=== PATIENT | female | born 1990 | race Caucasian/White ===

== ENCOUNTER → 2016-09-04 | Outpatient (CLI) | payer OTHER ==
[~2016-09-04] MED LIST: ACIPHEX20 MG; ALLEGRA ALLERG180 M2 PO; AMITRIPTYLINE H10 M1 PO; AMOXIL250 MG/5 M PO; AMOXIL500 MG PO; ANAPROX DS550 MG PO; BACTRIM DS 8001 TA1 PO; BACTRIM DS 8001 TAB PO; BENADRYL ALLERG25 M5 PO; BUSPAR10 MG; CEFADROXIL500 M1 PO; CIPRO250 MG PO; CIPROFLOXACIN500 M4 PO; CIPROFLOXACIN500 MG PO; CLEOCIN T T; DIAZEPAM2 MG PO; DICLEGIS DR 101 EACH PO; DICYCLOMINE HCL10 MG PO; DIFLUCAN150 MG PO; DOXEPIN HCL 10 MG/ML PO; FLEXERIL10 MG PO; FLUOXETINE20 MG PO; HYDROCODONE BIT1 T11 PO; HYDROXYZINE PAM50 MG PO; IBU800 MG PO; K-DUR 20MEQ20 MEQ PO; KEFLEX250 MG PO; KEFLEX500 M1 PO; KETOROLAC10 MG PO; KLONOPIN0.5 MG PO; LAMICTAL100 MG PO; LAMICTAL150 MG PO; LOMOTIL 0.025 M1 TAB PO; MACROBID100 M1 PO; MEDROL DOSEPAK4 MG PO; METHOCARBAMOL500 MG PO; MOTRIN CHI100 MG/51 PO; MOTRIN800 MG PO; NALTREXONE50 MG PO; NEXPLANON68 M2 SQ; NITROFURANTOIN100 M6 PO; ONDANSETRON4 MG PO; ORAPRED15 MG/5 ML PO; Orphenadrine C100 MG PO; PREDNISONE20 M1 PO; PRENATAL1 TA3 PO; PRILOSEC40 MG; PRILOSEC40 MG PO; PROZAC40 MG PO; REMERON30 M1 PO; RISPERDAL0.5 MG PO; SENOKOT1 TAB PO; SEROQUEL50 MG PO; SINEMET 25-100M1 TAB PO; SUDAFED60 MG PO; Septra Ds 800 M1 TAB PO; TRINTELLIX10 MG PO; VICODIN 5/500 505 MG; VICODIN 5/500 505 MG PO; VIVITROL380 MG IM; ZANTAC 150150 MG PO; ZITHROMAX Z PA250 MG PO; ZITHROMAX250 MG PO; ZOFRAN ODT4 MG SL; ZOFRAN ODT8 MG PO; ZOFRAN8 MG
== END | disposition home or self-care (01) ==
LOC: CT 08:49
DX: R10.2 Pelvic and perineal pain (principal); R82.99 Other abnormal findings in urine; M54.5 Low back pain; R31.9 Hematuria, unspecified; Z90.49 Acquired absence of other specified parts of digestive tract

== ENCOUNTER 2016-09-26 21:45 | Emergency (ER) | payer OTHER ==
[~2016-09-26] VITALS: Wt 70.3 kg
[2016-09-26] MEDS ORDERED: CLINDAMYCIN HC300 MG PO (21:53)
[2016-09-26 22:30] LABS: BASO % 0.3 % (0.0-1.0); EOS # 0.4 10*3/uL (0.0-0.4); EOS % 5.5 % (1.0-4.0); HEMATOCRIT 40.5 % (37.0-47.0); HEMOGLOBIN 13.4 g/dl (12.0-16.0); LYMPH % 29.9 % (27.0-41.0); MEAN CELL VOLUME 91.8 fl (81.0-99.0); MEAN CORPUSCULAR HGB 30.4 pg (27.0-31.0); MEAN CORPUSCULAR HGB CONC 33.1 g/dl (33.0-37.0); MEAN PLATELET VOLUME 9.6 fl (9.6-12.3); MONO # 0.4 10*3/uL (0.1-1.0); MONO % 5.8 % (3.0-9.0); NEUT # 3.9 10*3/uL (2.3-7.9); NEUT % 58.2 % (47.0-73.0); PLATELET COUNT AUTOMATED 307 10*3/uL (130-400); RED BLOOD COUNT 4.41 10*6/uL (4.10-5.10); RED CELL DISTRI WIDTH 12.6 % (0-14.5); WHITE BLOOD COUNT 6.8 10*3/uL (4.8-10.8)
[2016-09-26 22:44] LABS: BILIRUBIN NEGATIVE (NEGATIVE); BLOOD NEGATIVE (NEGATIVE); CLARITY SL CLOUDY (CLEAR); COLOR YELLOW (YELLOW); GLUCOSE NEGATIVE (NEGATIVE); KETONE NEGATIVE (NEGATIVE); LEUKO ESTERASE NEGATIVE (NEGATIVE); NITRITE NEGATIVE (NEGATIVE); PH 7.5 (5.0-9.0); PROTEIN NEGATIVE (NEGATIVE); UROBILINOGEN 0.2 E.U./dl (0.2-1.0)
[2016-09-26 22:48] LABS: BUN 13 mg/dl (7-24); CARBON DIOXIDE 26 mmol/L (21-32); CHLORIDE 105 mmol/L (98-107); EST GLOM FILT AFRICAN AMERICAN > 60 ml/min; GLUCOSE 90 mg/dL (65-99); POTASSIUM 3.9 mmol/L (3.5-5.1); SODIUM 142 mmol/L (136-145)
[2016-09-26 22:52] LABS: TROPONIN I < 0.015 ng/ml (<0.045)
[2016-09-26 22:55] LABS: BACTERIA 2+; EPITHELIAL CELLS 15-20; RBC 0-2 rbc/hpf (0-2); WBC 0-2 wbc/hpf (0-5)
[2016-09-26 22:56] LABS: URINE REFLEX COMMENT YES (NO)
[2016-09-26] MEDS ORDERED: Zofran4 MG PO (23:44)
[2016-09-27] MEDS ORDERED: BENTYL10 MG PO ×2 (00:01→00:44)
[2016-09-27] MEDS ORDERED: Zofran4 MG PO (00:44)
== END 2016-09-27 00:49 | disposition home or self-care (01) ==
LOC: ED 21:45
PROVIDERS: Emergency Medicine Emergency Medical Services; Student in an Organized Health Care Education/Training Program
DX: R10.84 Generalized abdominal pain (principal); F17.200 Nicotine dependence, unspecified, uncomplicated; R11.0 Nausea; Z90.49 Acquired absence of other specified parts of digestive tract; Z79.899 Other long term (current) drug therapy

== ENCOUNTER 2016-09-27 17:02 | Emergency (ER) | payer OTHER ==
[~2016-09-27] VITALS: Ht 160 cm; Wt 70.3 kg
[~2016-09-27 17:02] MED LIST changes: +BENTYL10 MG PO; +CLINDAMYCIN HC300 MG PO; +Zofran4 MG PO
[2016-09-27 18:01] LABS: BASO % 0.4 % (0.0-1.0); EOS # 0.3 10*3/uL (0.0-0.4); HEMATOCRIT 40.8 % (37.0-47.0); HEMOGLOBIN 13.4 g/dl (12.0-16.0); LYMPH # 1.8 10*3/uL (1.3-4.4); LYMPH % 26.9 % (27.0-41.0); MEAN CELL VOLUME 92.5 fl (81.0-99.0); MEAN CORPUSCULAR HGB 30.4 pg (27.0-31.0); MEAN CORPUSCULAR HGB CONC 32.8 g/dl (33.0-37.0); MONO # 0.4 10*3/uL (0.1-1.0); MONO % 6.1 % (3.0-9.0); NEUT # 4.2 10*3/uL (2.3-7.9); NEUT % 61.3 % (47.0-73.0); PLATELET COUNT AUTOMATED 303 10*3/uL (130-400); RED BLOOD COUNT 4.41 10*6/uL (4.10-5.10); RED CELL DISTRI WIDTH 12.7 % (0-14.5); WHITE BLOOD COUNT 6.9 10*3/uL (4.8-10.8)
[2016-09-27 18:37] LABS: ALBUMIN 3.4 gm/dl (3.1-4.5); ALKALINE PHOSPHATASE 43 U/L (45-117); BILIRUBIN, TOTAL 0.6 mg/dl (0.2-1.0); BUN 17 mg/dl (7-24); CARBON DIOXIDE 20 mmol/L (21-32); CHLORIDE 108 mmol/L (98-107); EST GLOM FILT AFRICAN AMERICAN > 60 ml/min; GLUCOSE 86 mg/dL (65-99); POTASSIUM 4.8 mmol/L (3.5-5.1); SGOT/AST 36 IU/L (3-35); SGPT/ALT 17 U/L (12-78); SODIUM 140 mmol/L (136-145)
== END 2016-09-27 21:00 | disposition home or self-care (01) ==
LOC: ED 17:02
PROVIDERS: Physician Assistant
DX: K59.01 Slow transit constipation (principal); R10.9 Unspecified abdominal pain; R14.0 Abdominal distension (gaseous); R11.0 Nausea; F17.200 Nicotine dependence, unspecified, uncomplicated; Z90.49 Acquired absence of other specified parts of digestive tract

== ENCOUNTER → 2016-10-14 | Outpatient (CLI) | payer OTHER ==
[2016-10-14 15:51] LABS: BILIRUBIN NEGATIVE (NEGATIVE); BLOOD TRACE-INTACT (NEGATIVE); CLARITY CLEAR (CLEAR); COLOR YELLOW (YELLOW); GLUCOSE NEGATIVE (NEGATIVE); KETONE NEGATIVE (NEGATIVE); LEUKO ESTERASE NEGATIVE (NEGATIVE); NITRITE NEGATIVE (NEGATIVE); PH 5.5 (5.0-9.0); PROTEIN NEGATIVE (NEGATIVE); SPECIFIC GRAVITY <= 1.005 (1.005-1.030); UROBILINOGEN 0.2 E.U./dl (0.2-1.0)
[2016-10-14 15:52] LABS: BASO % 0.5 % (0.0-1.0); EOS # 0.4 10*3/uL (0.0-0.4); EOS % 6.4 % (1.0-4.0); HEMOGLOBIN 13.2 g/dl (12.0-16.0); LYMPH # 1.4 10*3/uL (1.3-4.4); LYMPH % 23.6 % (27.0-41.0); MEAN CELL VOLUME 91.7 fl (81.0-99.0); MEAN CORPUSCULAR HGB 30.3 pg (27.0-31.0); MONO # 0.4 10*3/uL (0.1-1.0); MONO % 6.9 % (3.0-9.0); NEUT # 3.7 10*3/uL (2.3-7.9); NEUT % 62.3 % (47.0-73.0); PLATELET COUNT AUTOMATED 312 10*3/uL (130-400); RED BLOOD COUNT 4.36 10*6/uL (4.10-5.10); RED CELL DISTRI WIDTH 12.6 % (0-14.5)
[2016-10-14 15:58] LABS: BACTERIA 1+
[2016-10-14 16:19] LABS: ALKALINE PHOSPHATASE 42 U/L (45-117); BILIRUBIN, TOTAL 0.8 mg/dl (0.2-1.0); BUN 9 mg/dl (7-24); CARBON DIOXIDE 25 mmol/L (21-32); CHLORIDE 105 mmol/L (98-107); EST GLOM FILT AFRICAN AMERICAN > 60 ml/min; GLUCOSE 86 mg/dL (65-99); POTASSIUM 4.1 mmol/L (3.5-5.1); SGOT/AST 18 IU/L (3-35); SGPT/ALT 16 U/L (12-78); SODIUM 141 mmol/L (136-145)
== END | disposition home or self-care (01) ==
LOC: LAB 13:54 → US 14:00
PROVIDERS: Urology
DX: N39.0 Urinary tract infection, site not specified (principal); M54.2 Cervicalgia; N32.89 Other specified disorders of bladder; Z96.0 Presence of urogenital implants; Z91.81 History of falling

== ENCOUNTER 2016-10-22 13:21 | Emergency (ER) | payer OTHER ==
[~2016-10-22] VITALS: Ht 160 cm; Wt 68.0 kg
[2016-10-22] MEDS ORDERED: PROZAC20 MG PO (13:32)
[2016-10-22 14:34] LABS: BASO % 0.4 % (0.0-1.0); EOS # 0.2 10*3/uL (0.0-0.4); EOS % 3.4 % (1.0-4.0); HEMATOCRIT 38.9 % (37.0-47.0); HEMOGLOBIN 12.8 g/dl (12.0-16.0); LYMPH # 1.4 10*3/uL (1.3-4.4); LYMPH % 27.1 % (27.0-41.0); MEAN CELL VOLUME 90.9 fl (81.0-99.0); MEAN CORPUSCULAR HGB 29.9 pg (27.0-31.0); MEAN CORPUSCULAR HGB CONC 32.9 g/dl (33.0-37.0); MONO # 0.3 10*3/uL (0.1-1.0); MONO % 5.2 % (3.0-9.0); NEUT # 3.2 10*3/uL (2.3-7.9); NEUT % 63.7 % (47.0-73.0); PLATELET COUNT AUTOMATED 295 10*3/uL (130-400); RED BLOOD COUNT 4.28 10*6/uL (4.10-5.10); RED CELL DISTRI WIDTH 12.7 % (0-14.5)
[2016-10-22 14:48] LABS: ALBUMIN 3.8 gm/dl (3.1-4.5); ALKALINE PHOSPHATASE 45 U/L (45-117); BILIRUBIN, TOTAL 0.5 mg/dl (0.2-1.0); BUN 13 mg/dl (7-24); C-REACTIVE PROTEIN 0.79 MG/DL (0-0.3); CARBON DIOXIDE 24 mmol/L (21-32); CHLORIDE 108 mmol/L (98-107); EST GLOM FILT AFRICAN AMERICAN > 60 ml/min; GLUCOSE 84 mg/dL (65-99); MAGNESIUM 1.9 mg/dL (1.5-2.1); POTASSIUM 3.9 mmol/L (3.5-5.1); SGOT/AST 19 IU/L (3-35); SGPT/ALT 14 U/L (12-78); SODIUM 139 mmol/L (136-145); TOTAL PROTEIN 7.9 gm/dL (6.4-8.2)
[2016-10-22 15:13] LABS: BILIRUBIN NEGATIVE (NEGATIVE); BLOOD TRACE-INTACT (NEGATIVE); CLARITY SL CLOUDY (CLEAR); COLOR YELLOW (YELLOW); GLUCOSE NEGATIVE (NEGATIVE); KETONE 1+ (NEGATIVE); LEUKO ESTERASE NEGATIVE (NEGATIVE); NITRITE NEGATIVE (NEGATIVE); PH 5.5 (5.0-9.0); PROTEIN NEGATIVE (NEGATIVE); UROBILINOGEN 0.2 E.U./dl (0.2-1.0)
[2016-10-22 15:31] LABS: BACTERIA 3+; RBC 0-2 rbc/hpf (0-2); URINE REFLEX COMMENT YES (NO)
[2016-10-22] MEDS ORDERED: FLONASE ALLERG9.9 ML NAS (16:08)
[2016-10-22] MEDS ORDERED: IBUPROFEN600 MG PO (16:08)
[2016-10-22] MEDS ORDERED: LEVAQUIN750 M1 PO (16:08)
[2016-10-22] MEDS ORDERED: PHENERGAN25 M3 PO (16:28)
== END 2016-10-22 16:19 | disposition home or self-care (01) ==
LOC: ED 13:21
PROVIDERS: Emergency Medicine
DX: J01.00 Acute maxillary sinusitis, unspecified (principal); R51 Headache; M43.6 Torticollis; R53.81 Other malaise; R63.0 Anorexia; R11.0 Nausea; Z79.899 Other long term (current) drug therapy

== ENCOUNTER → 2016-11-01 | Outpatient (CLI) | payer OTHER ==
[~2016-11-01] MED LIST changes: +FLONASE ALLERG9.9 ML NAS; +IBUPROFEN600 MG PO; +LEVAQUIN750 M1 PO; +PHENERGAN25 M3 PO; +PROZAC20 MG PO
[2016-11-01 16:00] LABS: HEMATOCRIT 38.2 % (37.0-47.0); HEMOGLOBIN 12.6 g/dl (12.0-16.0)
== END | disposition home or self-care (01) ==
LOC: LAB 15:16
PROVIDERS: Internal Medicine Cardiovascular Disease
DX: D06.0 Carcinoma in situ of endocervix (principal); N80.3 Endometriosis of pelvic peritoneum

== ENCOUNTER 2016-11-27 21:04 | Emergency (ER) | payer OTHER ==
[~2016-11-27] VITALS: Ht 160 cm; Wt 70.3 kg
--- NOTE | ~2016-11-27 | EKG ---
[place], [place] ELECTROCARDIOGRAM REPORT NAME: SARAH LINN UNIT #: [id number] ROOM: DOCTOR: INGRID SERRA MD BIRTHDATE: [birth year] DOS: 11/27/2016 TIME: 2116 hours. Normal sinus rhythm at 85 beats per minute. The tracing is normal. No previous tracing is available for comparison. INGRID SERRA MD CM:EKGRPT:ELECTROCARDIOGRAM REPORT [id number] INGRID SERRA MD
[2016-11-27 21:39] LABS: BASO % 0.3 % (0.0-1.0); EOS # 0.5 10*3/uL (0.0-0.4); EOS % 5.4 % (1.0-4.0); HEMATOCRIT 38.9 % (37.0-47.0); HEMOGLOBIN 12.8 g/dl (12.0-16.0); LYMPH # 2.4 10*3/uL (1.3-4.4); LYMPH % 25.9 % (27.0-41.0); MEAN CELL VOLUME 93.3 fl (81.0-99.0); MEAN CORPUSCULAR HGB 30.7 pg (27.0-31.0); MEAN CORPUSCULAR HGB CONC 32.9 g/dl (33.0-37.0); MEAN PLATELET VOLUME 9.9 fl (9.6-12.3); MONO # 0.7 10*3/uL (0.1-1.0); MONO % 7.2 % (3.0-9.0); NEUT # 5.6 10*3/uL (2.3-7.9); NEUT % 60.8 % (47.0-73.0); PLATELET COUNT AUTOMATED 332 10*3/uL (130-400); RED BLOOD COUNT 4.17 10*6/uL (4.10-5.10); RED CELL DISTRI WIDTH 12.8 % (0-14.5); WHITE BLOOD COUNT 9.3 10*3/uL (4.8-10.8)
[2016-11-27 21:51] LABS: INTERNATIONAL NORM RATIO 0.9 (2.0-3.5)
[2016-11-27 22:00] LABS: ALBUMIN 3.8 gm/dl (3.1-4.5); ALKALINE PHOSPHATASE 51 U/L (45-117); BILIRUBIN, TOTAL 0.4 mg/dl (0.2-1.0); BUN 12 mg/dl (7-24); CARBON DIOXIDE 25 mmol/L (21-32); CHLORIDE 108 mmol/L (98-107); CPK 67 U/L (26-192); EST GLOM FILT AFRICAN AMERICAN > 60 ml/min; GLUCOSE 90 mg/dL (65-99); MAGNESIUM 1.8 mg/dL (1.5-2.1); POTASSIUM 3.7 mmol/L (3.5-5.1); SGOT/AST 18 IU/L (3-35); SGPT/ALT 22 U/L (12-78); SODIUM 141 mmol/L (136-145); TOTAL PROTEIN 8.3 gm/dL (6.4-8.2)
[2016-11-27 22:03] LABS: C-REACTIVE PROTEIN < 0.29 MG/DL (0-0.3); CKMB < 0.5 ng/ml (0.5-3.6); TROPONIN I < 0.015 ng/ml (<0.045)
[2016-11-27 22:36] LABS: BILIRUBIN NEGATIVE (NEGATIVE); BLOOD 2+ (NEGATIVE); CLARITY CLEAR (CLEAR); COLOR YELLOW (YELLOW); GLUCOSE NEGATIVE (NEGATIVE); KETONE NEGATIVE (NEGATIVE); LEUKO ESTERASE 3+ (NEGATIVE); NITRITE NEGATIVE (NEGATIVE); PROTEIN NEGATIVE (NEGATIVE); SPECIFIC GRAVITY 1.015 (1.005-1.030); UROBILINOGEN 0.2 E.U./dl (0.2-1.0)
[2016-11-27 22:46] LABS: BACTERIA 3+; EPITHELIAL CELLS 15-20; RBC 16-20 rbc/hpf (0-2); URINE REFLEX COMMENT YES (NO); WBC 31-40 wbc/hpf (0-5)
[2016-11-27] MEDS ORDERED: MACROBID100 M1 PO (23:00)
[2016-11-28] MEDS ORDERED: CYCLOBENZAPRINE10 MG PO (00:15)
== END 2016-11-28 00:34 | disposition home or self-care (01) ==
LOC: ED 21:04
PROVIDERS: Student in an Organized Health Care Education/Training Program
DX: R07.9 Chest pain, unspecified (principal); R10.30 Lower abdominal pain, unspecified; M54.9 Dorsalgia, unspecified; R11.10 Vomiting, unspecified; N93.9 Abnormal uterine and vaginal bleeding, unspecified; F17.200 Nicotine dependence, unspecified, uncomplicated; Z79.899 Other long term (current) drug therapy

== ENCOUNTER 2017-01-05 23:52 | Emergency (ER) | payer OTHER ==
[~2017-01-05] VITALS: Ht 160 cm; Wt 72.6 kg
[~2017-01-05 23:52] MED LIST changes: +CYCLOBENZAPRINE10 MG PO
[2017-01-06 00:29] LABS: BILIRUBIN NEGATIVE (NEGATIVE); BLOOD 3+ (NEGATIVE); CLARITY SL CLOUDY (CLEAR); COLOR YELLOW (YELLOW); GLUCOSE NEGATIVE (NEGATIVE); KETONE NEGATIVE (NEGATIVE); LEUKO ESTERASE NEGATIVE (NEGATIVE); NITRITE NEGATIVE (NEGATIVE); UROBILINOGEN 0.2 E.U./dl (0.2-1.0)
[2017-01-06 00:32] LABS: BASO % 0.4 % (0.0-1.0); EOS # 0.5 10*3/uL (0.0-0.4); EOS % 6.8 % (1.0-4.0); HEMATOCRIT 36.3 % (37.0-47.0); LYMPH # 2.5 10*3/uL (1.3-4.4); LYMPH % 36.3 % (27.0-41.0); MEAN CELL VOLUME 91.9 fl (81.0-99.0); MEAN CORPUSCULAR HGB 30.4 pg (27.0-31.0); MEAN CORPUSCULAR HGB CONC 33.1 g/dl (33.0-37.0); MEAN PLATELET VOLUME 9.8 fl (9.6-12.3); MONO # 0.5 10*3/uL (0.1-1.0); MONO % 7.7 % (3.0-9.0); NEUT # 3.4 10*3/uL (2.3-7.9); NEUT % 48.7 % (47.0-73.0); PLATELET COUNT AUTOMATED 334 10*3/uL (130-400); RED BLOOD COUNT 3.95 10*6/uL (4.10-5.10); RED CELL DISTRI WIDTH 12.7 % (0-14.5); WHITE BLOOD COUNT 6.9 10*3/uL (4.8-10.8)
[2017-01-06 00:40] LABS: URINE AMPHETAMINES < 1000 (1000ng/ml); URINE BARBITURATES < 200 (200ng/ml); URINE BENZODIAZEPINES < 200 (200ng/ml); URINE CANNABINOIDS (THC) < 50 (50ng/ml); URINE COCAINE < 300 (300ng/ml); URINE METHADONE < 300 (300ng/ml); URINE OPIATES < 300 (300ng/ml)
[2017-01-06 00:43] LABS: URINE PHENCYCLIDINE < 25 (25ng/ml)
[2017-01-06 00:48] LABS: ACETAMINOPHEN (TYLENOL) < 2.0 ug/ml (10-30); ALBUMIN 3.6 gm/dl (3.1-4.5); ALKALINE PHOSPHATASE 48 U/L (45-117); BUN 8 mg/dl (7-24); CHLORIDE 107 mmol/L (98-107); CREATININE 0.65 mg/dL (0.55-1.02); ETHYL ALCOHOL < 3.0 mg/dl (<3); POTASSIUM 3.4 mmol/L (3.5-5.1); SGOT/AST 20 IU/L (3-35); SGPT/ALT 15 U/L (12-78); SODIUM 140 mmol/L (136-145); TOTAL PROTEIN 7.4 gm/dL (6.4-8.2)
[2017-01-06 00:52] LABS: RBC 21-30 rbc/hpf (0-2)
[2017-01-06 00:54] LABS: BACTERIA TRACE; EPITHELIAL CELLS 45-50
== END 2017-01-06 11:45 | disposition home or self-care (01) ==
LOC: ED 23:52
PROVIDERS: Emergency Medicine Emergency Medical Services
DX: F32.9 Major depressive disorder, single episode, unspecified (principal); F17.200 Nicotine dependence, unspecified, uncomplicated; F42.9 Obsessive-compulsive disorder, unspecified; Z90.49 Acquired absence of other specified parts of digestive tract; Z98.890 Other specified postprocedural states; Z79.899 Other long term (current) drug therapy

== ENCOUNTER → 2017-01-06 | Outpatient (CLI) | payer OTHER ==
[2017-01-07 08:15] LABS: HIV 1+2 AB + HIV1 P24 AG Non Reactive (Non Reactive)
[2017-01-10 16:12] LABS: HSV 2 IGM AB <1:10 titer (<1:10); HSV I IGM ABS <1:10 titer (<1:10)
== END | disposition home or self-care (01) ==
LOC: LAB 15:04
PROVIDERS: Family Medicine
DX: Z72.51 High risk heterosexual behavior (principal)

== ENCOUNTER 2017-01-27 17:56 | Emergency (ER) | payer OTHER ==
[~2017-01-27] VITALS: Ht 160 cm; Wt 72.6 kg
[~2017-01-27 17:56] MED LIST changes: -PROVENTIL HFA6.7 GM DEVI
[2017-01-27 18:17] LABS: BASO % 0.2 % (0.0-1.0); EOS # 0.4 10*3/uL (0.0-0.4); EOS % 4.8 % (1.0-4.0); HEMOGLOBIN 13.2 g/dl (12.0-16.0); LYMPH # 2.1 10*3/uL (1.3-4.4); LYMPH % 24.6 % (27.0-41.0); MEAN CELL VOLUME 91.1 fl (81.0-99.0); MEAN CORPUSCULAR HGB 30.8 pg (27.0-31.0); MEAN CORPUSCULAR HGB CONC 33.8 g/dl (33.0-37.0); MEAN PLATELET VOLUME 10.2 fl (9.6-12.3); MONO # 0.6 10*3/uL (0.1-1.0); MONO % 7.4 % (3.0-9.0); NEUT # 5.3 10*3/uL (2.3-7.9); NEUT % 62.9 % (47.0-73.0); PLATELET COUNT AUTOMATED 275 10*3/uL (130-400); RED BLOOD COUNT 4.28 10*6/uL (4.10-5.10); RED CELL DISTRI WIDTH 12.7 % (0-14.5); WHITE BLOOD COUNT 8.5 10*3/uL (4.8-10.8)
[2017-01-27 18:32] LABS: ACT PARTIAL THROMBO TIME 26.3 SECONDS (20.8-31.5)
[2017-01-27 18:35] LABS: ALBUMIN 3.9 gm/dl (3.1-4.5); ALKALINE PHOSPHATASE 42 U/L (45-117); BUN 10 mg/dl (7-24); CHLORIDE 108 mmol/L (98-107); CREATININE 0.69 mg/dL (0.55-1.02); MAGNESIUM 2.2 mg/dL (1.5-2.1); POTASSIUM 3.6 mmol/L (3.5-5.1); SGOT/AST 16 IU/L (3-35); SGPT/ALT 14 U/L (12-78); SODIUM 140 mmol/L (136-145); TOTAL PROTEIN 7.9 gm/dL (6.4-8.2)
[2017-01-27 18:38] LABS: TROPONIN I < 0.015 ng/ml (<0.045)
[2017-01-27] MEDS ORDERED: PROVENTIL HFA6.7 GM DEVI (19:26)
== END 2017-01-27 19:30 | disposition home or self-care (01) ==
LOC: ED 17:56
PROVIDERS: Emergency Medicine
DX: R07.9 Chest pain, unspecified (principal); R06.02 Shortness of breath; I26.99 Other pulmonary embolism without acute cor pulmonale; F17.200 Nicotine dependence, unspecified, uncomplicated; Z90.49 Acquired absence of other specified parts of digestive tract

== ENCOUNTER → 2017-01-27 | Outpatient (CLI) | payer OTHER ==
[~2017-01-27] MED LIST changes: +PROVENTIL HFA6.7 GM DEVI
[2017-01-27 14:49] LABS: BASO % 0.3 % (0.0-1.0); EOS # 0.3 10*3/uL (0.0-0.4); EOS % 5.8 % (1.0-4.0); HEMATOCRIT 39.3 % (37.0-47.0); HEMOGLOBIN 13.2 g/dl (12.0-16.0); LYMPH # 1.7 10*3/uL (1.3-4.4); LYMPH % 29.9 % (27.0-41.0); MEAN CELL VOLUME 92.3 fl (81.0-99.0); MEAN CORPUSCULAR HGB CONC 33.6 g/dl (33.0-37.0); MEAN PLATELET VOLUME 10.1 fl (9.6-12.3); MONO # 0.4 10*3/uL (0.1-1.0); MONO % 6.8 % (3.0-9.0); NEUT # 3.3 10*3/uL (2.3-7.9); PLATELET COUNT AUTOMATED 283 10*3/uL (130-400); RED BLOOD COUNT 4.26 10*6/uL (4.10-5.10); RED CELL DISTRI WIDTH 12.9 % (0-14.5); WHITE BLOOD COUNT 5.7 10*3/uL (4.8-10.8)
[2017-01-27 15:19] LABS: ALBUMIN 3.9 gm/dl (3.1-4.5); BILIRUBIN, DIRECT 0.2 mg/dL (0.0-0.2); TOTAL PROTEIN 7.9 gm/dL (6.4-8.2)
== END | disposition home or self-care (01) ==
LOC: LAB 14:25
PROVIDERS: Family Medicine
DX: Z01.818 Encounter for other preprocedural examination (principal); S60.212A Contusion of left wrist, initial encounter; X58.XXXA Exposure to other specified factors, initial encounter; Y93.89 Activity, other specified; Y92.89 Other specified places as the place of occurrence of the external cause; Y99.8 Other external cause status

== ENCOUNTER → 2017-02-02 | Outpatient (CLI) | payer OTHER ==
[~2017-02-02] MED LIST changes: +PROVENTIL HFA6.7 GM DEVI
== END | disposition home or self-care (01) ==
LOC: LAB 12:29
DX: Z01.818 Encounter for other preprocedural examination (principal)

== ENCOUNTER 2017-02-10 22:58 | Emergency (ER) | payer OTHER ==
[~2017-02-10] VITALS: Ht 160 cm; Wt 72.6 kg
[2017-02-10 23:26] LABS: BILIRUBIN NEGATIVE (NEGATIVE); BLOOD NEGATIVE (NEGATIVE); CLARITY SL CLOUDY (CLEAR); COLOR YELLOW (YELLOW); GLUCOSE NEGATIVE (NEGATIVE); KETONE NEGATIVE (NEGATIVE); LEUKO ESTERASE 1+ (NEGATIVE); NITRITE NEGATIVE (NEGATIVE); PH 5.5 (5.0-9.0); UROBILINOGEN 0.2 E.U./dl (0.2-1.0)
[2017-02-10 23:34] LABS: EPITHELIAL CELLS 50-55
[2017-02-10 23:35] LABS: BACTERIA 4+
[2017-02-10 23:42] LABS: URINE AMPHETAMINES < 1000 (1000ng/ml); URINE BARBITURATES < 200 (200ng/ml); URINE BENZODIAZEPINES < 200 (200ng/ml); URINE CANNABINOIDS (THC) < 50 (50ng/ml); URINE COCAINE < 300 (300ng/ml); URINE METHADONE < 300 (300ng/ml); URINE OPIATES > 300 (300ng/ml); URINE PHENCYCLIDINE < 25 (25ng/ml)
[2017-02-11 00:04] LABS: BASO % 0.3 % (0.0-1.0); EOS # 0.5 10*3/uL (0.0-0.4); EOS % 8.8 % (1.0-4.0); HEMATOCRIT 43.1 % (37.0-47.0); HEMOGLOBIN 14.3 g/dl (12.0-16.0); LYMPH # 2.2 10*3/uL (1.3-4.4); LYMPH % 35.7 % (27.0-41.0); MEAN CELL VOLUME 91.9 fl (81.0-99.0); MEAN CORPUSCULAR HGB 30.5 pg (27.0-31.0); MEAN CORPUSCULAR HGB CONC 33.2 g/dl (33.0-37.0); MEAN PLATELET VOLUME 10.1 fl (9.6-12.3); MONO # 0.4 10*3/uL (0.1-1.0); MONO % 5.7 % (3.0-9.0); NEUT % 49.3 % (47.0-73.0); PLATELET COUNT AUTOMATED 322 10*3/uL (130-400); RED BLOOD COUNT 4.69 10*6/uL (4.10-5.10); RED CELL DISTRI WIDTH 12.4 % (0-14.5); WHITE BLOOD COUNT 6.1 10*3/uL (4.8-10.8)
[2017-02-11 00:20] LABS: BUN 9 mg/dl (7-24); CHLORIDE 103 mmol/L (98-107); CREATININE 0.72 mg/dL (0.55-1.02); POTASSIUM 4.1 mmol/L (3.5-5.1); SODIUM 141 mmol/L (136-145)
[2017-02-11] MEDS ORDERED: KETOROLAC10 MG PO (01:38)
[2017-02-11] MEDS ORDERED: Phenergan25 MG PO (01:39)
== END 2017-02-11 02:15 | disposition home or self-care (01) ==
LOC: ED 22:58
PROVIDERS: Emergency Medicine Emergency Medical Services
DX: G43.B0 Ophthalmoplegic migraine, not intractable (principal); F32.9 Major depressive disorder, single episode, unspecified; F41.9 Anxiety disorder, unspecified; F42.9 Obsessive-compulsive disorder, unspecified; F17.200 Nicotine dependence, unspecified, uncomplicated; Z90.49 Acquired absence of other specified parts of digestive tract; Z98.890 Other specified postprocedural states; Z79.899 Other long term (current) drug therapy

== ENCOUNTER 2017-03-04 21:05 | Emergency (ER) | payer OTHER ==
[~2017-03-04] VITALS: Ht 160 cm; Wt 72.6 kg
[~2017-03-04 21:05] MED LIST changes: +Phenergan25 MG PO
[2017-03-04] MEDS ORDERED: CELEXA20 MG PO (21:21)
[2017-03-04 21:49] LABS: BILIRUBIN NEGATIVE (NEGATIVE); BLOOD TRACE-INTACT (NEGATIVE); CLARITY CLEAR (CLEAR); COLOR YELLOW (YELLOW); GLUCOSE NEGATIVE (NEGATIVE); KETONE NEGATIVE (NEGATIVE); LEUKO ESTERASE NEGATIVE (NEGATIVE); NITRITE NEGATIVE (NEGATIVE); SPECIFIC GRAVITY 1.015 (1.005-1.030); UROBILINOGEN 0.2 E.U./dl (0.2-1.0)
[2017-03-04 21:56] LABS: BACTERIA 2+; EPITHELIAL CELLS 16-20
[2017-03-04] MEDS ORDERED: NAPROSYN500 MG PO (23:47)
== END 2017-03-05 01:03 | disposition home or self-care (01) ==
LOC: ED 21:05
PROVIDERS: Student in an Organized Health Care Education/Training Program
DX: M25.551 Pain in right hip (principal); M54.9 Dorsalgia, unspecified; F32.9 Major depressive disorder, single episode, unspecified; F41.9 Anxiety disorder, unspecified; F42.9 Obsessive-compulsive disorder, unspecified; F17.200 Nicotine dependence, unspecified, uncomplicated; Z90.49 Acquired absence of other specified parts of digestive tract; Z88.8 Allergy status to other drugs, medicaments and biological substances; Z79.899 Other long term (current) drug therapy

== ENCOUNTER → 2017-04-14 | Outpatient (CLI) | payer OTHER ==
[~2017-04-14] MED LIST changes: +CELEXA20 MG PO; +NAPROSYN500 MG PO
== END | disposition home or self-care (01) ==
LOC: LAB 14:41
DX: Z11.3 Encounter for screening for infections with a predominantly sexual mode of transmission (principal)

== ENCOUNTER 2017-04-15 20:21 | Emergency (ER) | payer OTHER ==
[~2017-04-15] VITALS: Ht 160 cm; Wt 72.6 kg
[2017-04-15 21:39] LABS: BILIRUBIN NEGATIVE (NEGATIVE); BLOOD NEGATIVE (NEGATIVE); CLARITY CLEAR (CLEAR); COLOR YELLOW (YELLOW); GLUCOSE NEGATIVE (NEGATIVE); KETONE NEGATIVE (NEGATIVE); LEUKO ESTERASE NEGATIVE (NEGATIVE); NITRITE NEGATIVE (NEGATIVE); PH 7.5 (5.0-9.0); UROBILINOGEN 0.2 E.U./dl (0.2-1.0)
[2017-04-15 21:47] LABS: URINE AMPHETAMINES < 1000 (1000ng/ml); URINE BARBITURATES < 200 (200ng/ml); URINE BENZODIAZEPINES < 200 (200ng/ml); URINE CANNABINOIDS (THC) < 50 (50ng/ml); URINE COCAINE < 300 (300ng/ml); URINE METHADONE < 300 (300ng/ml); URINE OPIATES < 300 (300ng/ml)
[2017-04-15 21:48] LABS: URINE PHENCYCLIDINE < 25 (25ng/ml)
[2017-04-15 21:50] LABS: BACTERIA TRACE
[2017-04-15 21:54] LABS: BASO % 0.3 % (0.0-1.0); EOS # 0.2 10*3/uL (0.0-0.4); EOS % 2.4 % (1.0-4.0); HEMATOCRIT 39.2 % (37.0-47.0); HEMOGLOBIN 13.3 g/dl (12.0-16.0); LYMPH # 1.6 10*3/uL (1.3-4.4); MEAN CELL VOLUME 90.3 fl (81.0-99.0); MEAN CORPUSCULAR HGB 30.6 pg (27.0-31.0); MEAN CORPUSCULAR HGB CONC 33.9 g/dl (33.0-37.0); MEAN PLATELET VOLUME 9.7 fl (9.6-12.3); MONO # 0.5 10*3/uL (0.1-1.0); MONO % 4.6 % (3.0-9.0); NEUT # 7.5 10*3/uL (2.3-7.9); NEUT % 76.4 % (47.0-73.0); PLATELET COUNT AUTOMATED 341 10*3/uL (130-400); RED BLOOD COUNT 4.34 10*6/uL (4.10-5.10); RED CELL DISTRI WIDTH 12.7 % (0-14.5); WHITE BLOOD COUNT 9.8 10*3/uL (4.8-10.8)
[2017-04-15 22:10] LABS: ALBUMIN 4.4 gm/dl (3.1-4.5); ALKALINE PHOSPHATASE 49 U/L (45-117); BETA-HCG, QUANT < 1.0 mIU/mL (1-3); BUN 6 mg/dl (7-24); CHLORIDE 106 mmol/L (98-107); CREATININE 0.59 mg/dL (0.55-1.02); LIPASE 117 U/L (73-393); POTASSIUM 4.2 mmol/L (3.5-5.1); SGOT/AST 20 IU/L (3-35); SGPT/ALT 19 U/L (12-78); SODIUM 139 mmol/L (136-145); TOTAL PROTEIN 8.3 gm/dL (6.4-8.2); TROPONIN I < 0.015 ng/ml (<0.045)
== END 2017-04-16 00:48 | disposition home or self-care (01) ==
LOC: ED 20:21
PROVIDERS: Emergency Medicine Emergency Medical Services
DX: K29.70 Gastritis, unspecified, without bleeding (principal); K59.00 Constipation, unspecified; F32.9 Major depressive disorder, single episode, unspecified; F41.9 Anxiety disorder, unspecified; F42.9 Obsessive-compulsive disorder, unspecified; F17.200 Nicotine dependence, unspecified, uncomplicated; F10.10 Alcohol abuse, uncomplicated; Z88.8 Allergy status to other drugs, medicaments and biological substances; Z79.899 Other long term (current) drug therapy; Z90.49 Acquired absence of other specified parts of digestive tract

== ENCOUNTER → 2017-05-27 | Outpatient (CLI) | payer OTHER ==
[2017-05-27 16:24] LABS: BASO % 0.4 % (0.0-1.0); EOS # 0.3 10*3/uL (0.0-0.4); EOS % 3.8 % (1.0-4.0); HEMATOCRIT 37.5 % (37.0-47.0); HEMOGLOBIN 12.4 g/dl (12.0-16.0); LYMPH % 26.6 % (27.0-41.0); MEAN CORPUSCULAR HGB 30.1 pg (27.0-31.0); MEAN CORPUSCULAR HGB CONC 33.1 g/dl (33.0-37.0); MEAN PLATELET VOLUME 10.4 fl (9.6-12.3); MONO # 0.4 10*3/uL (0.1-1.0); MONO % 5.4 % (3.0-9.0); NEUT # 4.9 10*3/uL (2.3-7.9); NEUT % 63.5 % (47.0-73.0); PLATELET COUNT AUTOMATED 313 10*3/uL (130-400); RED BLOOD COUNT 4.12 10*6/uL (4.10-5.10); RED CELL DISTRI WIDTH 13.2 % (0-14.5); WHITE BLOOD COUNT 7.7 10*3/uL (4.8-10.8)
== END | disposition home or self-care (01) ==
LOC: LAB 15:41
PROVIDERS: Family Medicine
DX: M25.50 Pain in unspecified joint (principal)

== ENCOUNTER 2017-07-13 15:16 | Emergency (ER) | payer OTHER ==
[~2017-07-13] VITALS: Ht 167.6 cm; Wt 72.6 kg
[2017-07-13 15:51] LABS: BILIRUBIN NEGATIVE (NEGATIVE); BLOOD 3+ (NEGATIVE); CLARITY SL CLOUDY (CLEAR); COLOR YELLOW (YELLOW); GLUCOSE NEGATIVE (NEGATIVE); KETONE NEGATIVE (NEGATIVE); LEUKO ESTERASE NEGATIVE (NEGATIVE); NITRITE NEGATIVE (NEGATIVE); SPECIFIC GRAVITY 1.015 (1.005-1.030); UROBILINOGEN 0.2 E.U./dl (0.2-1.0)
[2017-07-13 15:58] LABS: BACTERIA 4+; EPITHELIAL CELLS 15-20
[2017-07-13 16:10] LABS: BASO % 0.3 % (0.0-1.0); EOS # 0.3 10*3/uL (0.0-0.4); EOS % 4.8 % (1.0-4.0); HEMOGLOBIN 13.5 g/dl (12.0-16.0); LYMPH # 1.8 10*3/uL (1.3-4.4); LYMPH % 29.3 % (27.0-41.0); MEAN CELL VOLUME 89.7 fl (81.0-99.0); MEAN CORPUSCULAR HGB 30.3 pg (27.0-31.0); MEAN CORPUSCULAR HGB CONC 33.8 g/dl (33.0-37.0); MEAN PLATELET VOLUME 9.9 fl (9.6-12.3); MONO # 0.4 10*3/uL (0.1-1.0); MONO % 6.2 % (3.0-9.0); NEUT # 3.7 10*3/uL (2.3-7.9); NEUT % 59.2 % (47.0-73.0); PLATELET COUNT AUTOMATED 313 10*3/uL (130-400); RED BLOOD COUNT 4.46 10*6/uL (4.10-5.10); RED CELL DISTRI WIDTH 12.7 % (0-14.5); WHITE BLOOD COUNT 6.3 10*3/uL (4.8-10.8)
[2017-07-13 16:27] LABS: ALBUMIN 4.2 gm/dl (3.1-4.5); ALKALINE PHOSPHATASE 53 U/L (45-117); BUN 11 mg/dl (7-24); CHLORIDE 107 mmol/L (98-107); CREATININE 0.69 mg/dL (0.55-1.02); POTASSIUM 3.9 mmol/L (3.5-5.1); SGOT/AST 17 IU/L (3-35); SGPT/ALT 15 U/L (12-78); SODIUM 140 mmol/L (136-145); TOTAL PROTEIN 8.2 gm/dL (6.4-8.2)
[2017-07-13] MEDS ORDERED: MIRALAX POWDER17 G1 PO (17:59)
== END 2017-07-13 18:03 | disposition home or self-care (01) ==
LOC: ED 15:16
PROVIDERS: Nurse Practitioner Family
DX: K59.00 Constipation, unspecified (principal); R31.9 Hematuria, unspecified; R10.30 Lower abdominal pain, unspecified; R30.0 Dysuria; Z88.8 Allergy status to other drugs, medicaments and biological substances; Z79.899 Other long term (current) drug therapy

== ENCOUNTER 2017-07-16 12:18 | Emergency (ER) | payer OTHER ==
[~2017-07-16] VITALS: Ht 160 cm; Wt 74.8 kg
[~2017-07-16 12:18] MED LIST changes: +MIRALAX POWDER17 G1 PO
[2017-07-16 12:49] LABS: BILIRUBIN NEGATIVE (NEGATIVE); BLOOD TRACE-INTACT (NEGATIVE); CLARITY SL CLOUDY (CLEAR); COLOR YELLOW (YELLOW); GLUCOSE NEGATIVE (NEGATIVE); KETONE NEGATIVE (NEGATIVE); LEUKO ESTERASE NEGATIVE (NEGATIVE); NITRITE NEGATIVE (NEGATIVE); SPECIFIC GRAVITY 1.015 (1.005-1.030); UROBILINOGEN 0.2 E.U./dl (0.2-1.0)
[2017-07-16 13:03] LABS: BACTERIA TRACE
== END 2017-07-16 13:45 | disposition home or self-care (01) ==
LOC: ED 12:18
PROVIDERS: Family Medicine
DX: Z01.419 Encounter for gynecological examination (general) (routine) without abnormal findings (principal); R10.30 Lower abdominal pain, unspecified; F42.9 Obsessive-compulsive disorder, unspecified; Z90.49 Acquired absence of other specified parts of digestive tract; Z98.890 Other specified postprocedural states; Z79.899 Other long term (current) drug therapy; Z88.6 Allergy status to analgesic agent

== ENCOUNTER 2017-07-21 20:13 | Emergency (ER) | payer OTHER ==
[~2017-07-21] VITALS: Ht 160 cm; Wt 74.8 kg
[2017-07-21 21:43] LABS: BASO % 0.3 % (0.0-1.0); EOS # 0.2 10*3/uL (0.0-0.4); EOS % 1.4 % (1.0-4.0); HEMATOCRIT 38.4 % (37.0-47.0); LYMPH % 8.9 % (27.0-41.0); MEAN CELL VOLUME 89.5 fl (81.0-99.0); MEAN CORPUSCULAR HGB 30.3 pg (27.0-31.0); MEAN CORPUSCULAR HGB CONC 33.9 g/dl (33.0-37.0); MEAN PLATELET VOLUME 9.5 fl (9.6-12.3); MONO # 0.5 10*3/uL (0.1-1.0); MONO % 4.5 % (3.0-9.0); NEUT # 9.9 10*3/uL (2.3-7.9); NEUT % 84.6 % (47.0-73.0); PLATELET COUNT AUTOMATED 298 10*3/uL (130-400); RED BLOOD COUNT 4.29 10*6/uL (4.10-5.10); RED CELL DISTRI WIDTH 12.4 % (0-14.5); WHITE BLOOD COUNT 11.6 10*3/uL (4.8-10.8)
[2017-07-21 21:55] LABS: BUN 12 mg/dl (7-24); CHLORIDE 101 mmol/L (98-107); CREATININE 0.74 mg/dL (0.55-1.02); POTASSIUM 3.9 mmol/L (3.5-5.1); SODIUM 136 mmol/L (136-145)
[2017-07-21] MEDS ORDERED: LOMOTIL 2.5-0.1 EACH PO ×2 (22:12→22:28)
== END 2017-07-21 23:39 | disposition home or self-care (01) ==
LOC: ED 20:13
PROVIDERS: Emergency Medicine Emergency Medical Services
DX: B34.9 Viral infection, unspecified (principal); F42.9 Obsessive-compulsive disorder, unspecified; Z90.49 Acquired absence of other specified parts of digestive tract; Z98.890 Other specified postprocedural states; Z79.899 Other long term (current) drug therapy; Z88.8 Allergy status to other drugs, medicaments and biological substances

== ENCOUNTER → 2017-08-02 | Outpatient (CLI) | payer OTHER ==
[~2017-08-02] MED LIST changes: +LOMOTIL 2.5-0.1 EACH PO
[2017-08-02 15:44] LABS: BASO # 0.1 10*3/uL (0.0-0.1); BASO % 0.4 % (0.0-1.0); EOS # 0.4 10*3/uL (0.0-0.4); HEMOGLOBIN 12.7 g/dl (12.0-16.0); LYMPH # 1.5 10*3/uL (1.3-4.4); LYMPH % 11.5 % (27.0-41.0); MEAN CELL VOLUME 92.2 fl (81.0-99.0); MEAN CORPUSCULAR HGB 29.3 pg (27.0-31.0); MEAN CORPUSCULAR HGB CONC 31.8 g/dl (33.0-37.0); MEAN PLATELET VOLUME 9.7 fl (9.6-12.3); MONO # 0.7 10*3/uL (0.1-1.0); MONO % 5.5 % (3.0-9.0); NEUT # 10.4 10*3/uL (2.3-7.9); NEUT % 79.1 % (47.0-73.0); PLATELET COUNT AUTOMATED 385 10*3/uL (130-400); RED BLOOD COUNT 4.34 10*6/uL (4.10-5.10); RED CELL DISTRI WIDTH 12.8 % (0-14.5); WHITE BLOOD COUNT 13.2 10*3/uL (4.8-10.8)
[2017-08-02 15:58] LABS: URIC ACID 2.7 mg/dL (2.6-6.0)
[2017-08-04 00:08] LABS: LUPUS DRVVT 46.1 sec (0.0-47.0); PTT-LA 39.1 sec (0.0-51.9)
[2017-08-04 01:04] LABS: LUPUS REFLEX INTERPRETATION Comment: (.)
== END | disposition home or self-care (01) ==
LOC: LAB 14:31
PROVIDERS: Podiatrist Foot & Ankle Surgery
DX: G57.82 Other specified mononeuropathies of left lower limb (principal); R50.9 Fever, unspecified

== ENCOUNTER 2017-09-08 18:37 | Emergency (ER) | payer OTHER ==
[~2017-09-08] VITALS: Ht 160 cm; Wt 77.1 kg
[2017-09-08 19:42] LABS: BASO % 0.3 % (0.0-1.0); EOS # 0.4 10*3/uL (0.0-0.4); EOS % 5.1 % (1.0-4.0); HEMATOCRIT 38.9 % (37.0-47.0); HEMOGLOBIN 12.8 g/dl (12.0-16.0); LYMPH # 2.2 10*3/uL (1.3-4.4); LYMPH % 30.7 % (27.0-41.0); MEAN CELL VOLUME 91.3 fl (81.0-99.0); MEAN CORPUSCULAR HGB CONC 32.9 g/dl (33.0-37.0); MEAN PLATELET VOLUME 10.6 fl (9.6-12.3); MONO # 0.4 10*3/uL (0.1-1.0); MONO % 5.9 % (3.0-9.0); NEUT # 4.2 10*3/uL (2.3-7.9); NEUT % 57.7 % (47.0-73.0); PLATELET COUNT AUTOMATED 309 10*3/uL (130-400); RED BLOOD COUNT 4.26 10*6/uL (4.10-5.10); RED CELL DISTRI WIDTH 13.4 % (0-14.5); WHITE BLOOD COUNT 7.2 10*3/uL (4.8-10.8)
[2017-09-08 19:51] LABS: BILIRUBIN NEGATIVE (NEGATIVE); BLOOD TRACE-INTACT (NEGATIVE); CLARITY SL CLOUDY (CLEAR); COLOR YELLOW (YELLOW); GLUCOSE NEGATIVE (NEGATIVE); KETONE 2+ (NEGATIVE); LEUKO ESTERASE NEGATIVE (NEGATIVE); NITRITE NEGATIVE (NEGATIVE); PH 5.5 (5.0-9.0); UROBILINOGEN 0.2 E.U./dl (0.2-1.0)
[2017-09-08 20:00] LABS: BACTERIA 1+; EPITHELIAL CELLS 21-30
[2017-09-08 20:05] LABS: ALBUMIN 4.4 gm/dl (3.1-4.5); ALKALINE PHOSPHATASE 51 U/L (45-117); BUN 14 mg/dl (7-24); CHLORIDE 105 mmol/L (98-107); POTASSIUM 3.6 mmol/L (3.5-5.1); SGOT/AST 17 IU/L (3-35); SGPT/ALT 16 U/L (12-78); SODIUM 139 mmol/L (136-145); T3 UPTAKE 31 % (31-39); THYROXINE (T4) TOTAL 9.2 ug/dl (4.8-13.9); TOTAL PROTEIN 8.5 gm/dL (6.4-8.2)
[2017-09-08 20:10] LABS: TROPONIN I < 0.015 ng/ml (<0.045)
== END 2017-09-08 21:22 | disposition home or self-care (01) ==
LOC: ED 18:37
PROVIDERS: Nurse Practitioner Family
DX: R53.83 Other fatigue (principal); R11.0 Nausea; R63.0 Anorexia; Z88.8 Allergy status to other drugs, medicaments and biological substances; Z79.899 Other long term (current) drug therapy

== ENCOUNTER → 2017-09-09 | Outpatient (CLI) | payer OTHER ==
[2017-09-09 15:53] LABS: BUN 14 mg/dl (7-24); CREATININE 0.82 mg/dL (0.55-1.02)
[2017-09-09 15:58] LABS: THYROID STIM HORMONE (HS) 0.685 uIU/ml (0.358-4.75)
[2017-09-10 08:08] LABS: IMMUNOGLOBULIN G, QNT 1741 mg/dL (700-1600); IMMUNOGLOBULIN M, QNT 160 mg/dL (26-217)
[2017-09-13 18:07] LABS: METHYLMALONIC ACID 706961 114 nmol/L (0-378)
== END | disposition home or self-care (01) ==
LOC: LAB 14:49
PROVIDERS: Psychiatry & Neurology Neurology
DX: Z13.89 Encounter for screening for other disorder (principal); F80.9 Developmental disorder of speech and language, unspecified; G60.9 Hereditary and idiopathic neuropathy, unspecified; H53.8 Other visual disturbances; R41.3 Other amnesia; R20.0 Anesthesia of skin; R20.2 Paresthesia of skin

== ENCOUNTER → 2017-09-12 | Outpatient (CLI) | payer OTHER | END | disposition home or self-care (01) | LOC: MRI 13:40 | DX: F80.9 Developmental disorder of speech and language, unspecified (principal); R42 Dizziness and giddiness; R20.2 Paresthesia of skin; R20.0 Anesthesia of skin; R41.3 Other amnesia; H57.02 Anisocoria; H53.8 Other visual disturbances ==

== ENCOUNTER → 2017-12-13 | Outpatient (CLI) | payer OTHER ==
[~2017-12-13] MED LIST changes: +BROMFED DM COU118 M2 PO
== END | disposition home or self-care (01) ==
LOC: US 13:58
DX: N63.22 Unspecified lump in the left breast, upper inner quadrant (principal); N60.22 Fibroadenosis of left breast

== ENCOUNTER 2017-12-24 03:17 | Emergency (ER) | payer OTHER ==
[~2017-12-24] VITALS: Ht 160 cm; Wt 68.0 kg
[~2017-12-24 03:17] MED LIST changes: -BROMFED DM COU118 M2 PO
[2017-12-24 03:44] LABS: BASO % 0.4 % (0.0-1.0); EOS # 0.3 10*3/uL (0.0-0.4); EOS % 3.9 % (1.0-4.0); HEMATOCRIT 41.6 % (37.0-47.0); HEMOGLOBIN 13.7 g/dl (12.0-16.0); LYMPH # 2.7 10*3/uL (1.3-4.4); MEAN CELL VOLUME 90.6 fl (81.0-99.0); MEAN CORPUSCULAR HGB 29.8 pg (27.0-31.0); MEAN CORPUSCULAR HGB CONC 32.9 g/dl (33.0-37.0); MEAN PLATELET VOLUME 10.2 fl (9.6-12.3); MONO # 0.5 10*3/uL (0.1-1.0); NEUT # 4.9 10*3/uL (2.3-7.9); NEUT % 57.5 % (47.0-73.0); PLATELET COUNT AUTOMATED 268 10*3/uL (130-400); RED BLOOD COUNT 4.59 10*6/uL (4.10-5.10); RED CELL DISTRI WIDTH 12.6 % (0-14.5); WHITE BLOOD COUNT 8.5 10*3/uL (4.8-10.8)
[2017-12-24 04:04] LABS: ALBUMIN 4.1 gm/dl (3.1-4.5); ALKALINE PHOSPHATASE 46 U/L (45-117); BUN 15 mg/dl (7-24); CHLORIDE 105 mmol/L (98-107); CREATININE 0.75 mg/dL (0.55-1.02); POTASSIUM 3.7 mmol/L (3.5-5.1); SGOT/AST 14 IU/L (3-35); SGPT/ALT 16 U/L (12-78); SODIUM 139 mmol/L (136-145); TOTAL PROTEIN 8.7 gm/dL (6.4-8.2)
[2017-12-24] MEDS ORDERED: NAPROSYN500 MG PO (04:45)
== END 2017-12-24 04:53 | disposition home or self-care (01) ==
LOC: ED 03:17
PROVIDERS: Student in an Organized Health Care Education/Training Program
DX: K08.89 Other specified disorders of teeth and supporting structures (principal); G43.B0 Ophthalmoplegic migraine, not intractable; Z88.8 Allergy status to other drugs, medicaments and biological substances; Z79.899 Other long term (current) drug therapy; Z90.49 Acquired absence of other specified parts of digestive tract

== ENCOUNTER → 2018-01-27 | Outpatient (CLI) | payer OTHER ==
[~2018-01-27] MED LIST changes: +BROMFED DM COU118 M2 PO
[2018-01-27 15:38] LABS: CHLORIDE 109 mmol/L (98-107); POTASSIUM 3.6 mmol/L (3.5-5.1); SODIUM 142 mmol/L (136-145)
[2018-01-27 15:46] LABS: B-hCG (QUALITATIVE) NEGATIVE (NEGATIVE)
[2018-01-31 11:07] LABS: GONOCOCCUS BY NAA Negative (Negative)
== END | disposition home or self-care (01) ==
LOC: LAB 14:34
PROVIDERS: Dermatology; Nurse Practitioner Family
DX: L70.9 Acne, unspecified (principal); Z72.51 High risk heterosexual behavior

== ENCOUNTER → 2018-01-31 | Outpatient (CLI) | payer OTHER ==
[2018-01-31 10:57] LABS: ALBUMIN 4.2 gm/dl (3.1-4.5); ALKALINE PHOSPHATASE 55 U/L (45-117); BUN 12 mg/dl (7-24); CHLORIDE 106 mmol/L (98-107); CHOLESTEROL 188 mg/dL (<200); CPK 76 U/L (26-192); CREATININE 0.76 mg/dL (0.55-1.02); FREE T4 0.97 ng/dl (0.76-1.46); HDL CHOLESTEROL 71 mg/dl (40-60); LDL CHOLESTEROL 102 mg/dL (9-159); POTASSIUM 3.8 mmol/L (3.5-5.1); SGOT/AST 15 IU/L (3-35); SGPT/ALT 15 U/L (12-78); SODIUM 139 mmol/L (136-145); TOTAL PROTEIN 8.8 gm/dL (6.4-8.2); TRIGLYCERIDES 73 mg/dl (<150); VLDL CHOLESTEROL 15 mg/dL (6-40)
[2018-02-01 07:06] LABS: HEPATITIS B SURFACE AG Negative (Negative); HEPATITIS C VIRUS ANTIBODY <0.1 s/co (0.0-0.9)
[2018-02-01 09:07] LABS: ANTI-STREPTOLYSIN O AB 006031 1907.2 IU/mL (0.0-200.0); RHEUMATOID ARTHRITIS FACTOR <10.0 IU/mL (0.0-13.9)
[2018-02-01 14:11] LABS: EPSTEIN-BARR VCA IGM AB <36.0 U/mL (0.0-35.9)
[2018-02-01 15:07] LABS: ANTISCLERODERMA-70 AB <0.2 AI (0.0-0.9)
[2018-02-02 17:34] LABS: CCP ANTIBODIES IGG/IGA 6 units (0-19)
[2018-02-03 14:08] LABS: HLA-B27 ANTIGEN Negative (.)
== END | disposition home or self-care (01) ==
LOC: LAB 09:59
PROVIDERS: Family Medicine
DX: E55.9 Vitamin D deficiency, unspecified (principal); E78.00 Pure hypercholesterolemia, unspecified; M25.50 Pain in unspecified joint; M79.10 Myalgia, unspecified site

== ENCOUNTER → 2018-02-13 | Outpatient (CLI) | payer OTHER ==
[2018-02-14 05:08] LABS: TOTAL PROTEIN, SERUM 8.2 g/dL (6.0-8.5)
[2018-02-14 15:06] LABS: A/G RATIO 1.1 (0.7-1.7); ALBUMIN 4.2 g/dL (2.9-4.4); ALPHA-1-GLOBULIN 0.3 g/dL (0.0-0.4); ALPHA-2-GLOBULIN 0.8 g/dL (0.4-1.0); BETA GLOBULIN 1.1 g/dL (0.7-1.3); GAMMA GLOBULIN 1.7 g/dL (0.4-1.8); M-SPIKE Not Observed g/dL (Not Observed)
[2018-02-15 16:11] LABS: ALBUMIN, URINE 23.7 % (.); ALPHA-2-GLOBULIN, URINE 3.5 % (.); BETA GLOBULIN, URINE 54.3 % (.); GAMMA GLOBULIN, URINE 18.6 % (.); M-SPIKE, % Not Observed % (Not Observed); PROTEIN,TOTAL - URINE RANDOM <4.0 mg/dL (Not Estab.)
== END | disposition home or self-care (01) ==
LOC: LAB 16:23
PROVIDERS: Family Medicine
DX: E87.0 Hyperosmolality and hypernatremia (principal)

== ENCOUNTER 2018-02-16 22:31 | Emergency (ER) | payer OTHER ==
[~2018-02-16] VITALS: Ht 165.1 cm; Wt 68.0 kg
--- NOTE | ~2018-02-16 | EKG ---
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
--- NOTE | ~2018-02-16 | EKG ---
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
[~2018-02-16 22:31] MED LIST changes: -BROMFED DM COU118 M2 PO
[2018-02-16 23:17] LABS: BASO % 0.4 % (0.0-1.0); EOS # 0.5 10*3/uL (0.0-0.4); EOS % 6.2 % (1.0-4.0); HEMATOCRIT 38.4 % (37.0-47.0); HEMOGLOBIN 12.4 g/dl (12.0-16.0); LYMPH # 1.8 10*3/uL (1.3-4.4); LYMPH % 22.6 % (27.0-41.0); MEAN CELL VOLUME 93.7 fl (81.0-99.0); MEAN CORPUSCULAR HGB 30.2 pg (27.0-31.0); MEAN CORPUSCULAR HGB CONC 32.3 g/dl (33.0-37.0); MEAN PLATELET VOLUME 10.2 fl (9.6-12.3); MONO # 0.5 10*3/uL (0.1-1.0); MONO % 6.3 % (3.0-9.0); NEUT # 5.1 10*3/uL (2.3-7.9); NEUT % 64.4 % (47.0-73.0); PLATELET COUNT AUTOMATED 267 10*3/uL (130-400); RED CELL DISTRI WIDTH 13.2 % (0-14.5); WHITE BLOOD COUNT 7.9 10*3/uL (4.8-10.8)
[2018-02-16 23:34] LABS: ALBUMIN 3.5 gm/dl (3.1-4.5); ALKALINE PHOSPHATASE 49 U/L (45-117); BUN 10 mg/dl (7-24); CHLORIDE 109 mmol/L (98-107); CREATININE 0.61 mg/dL (0.55-1.02); POTASSIUM 4.1 mmol/L (3.5-5.1); SGOT/AST 13 IU/L (3-35); SGPT/ALT 12 U/L (12-78); SODIUM 141 mmol/L (136-145); TOTAL PROTEIN 7.6 gm/dL (6.4-8.2); TROPONIN I < 0.015 ng/ml (<0.045)
[2018-02-17 00:32] LABS: ACT PARTIAL THROMBO TIME 24.9 SECONDS (20.8-31.5); INTERNATIONAL NORM RATIO 0.9 (2.0-3.5)
[2018-02-17] MEDS ORDERED: ZITHROMAX250 MG PO (00:50)
[2018-02-17] MEDS ORDERED: BROMFED DM COU118 M2 PO (00:52)
== END 2018-02-17 00:56 | disposition home or self-care (01) ==
LOC: ED 22:31
PROVIDERS: Emergency Medicine Emergency Medical Services
DX: R07.89 Other chest pain (principal); J44.9 Chronic obstructive pulmonary disease, unspecified; G43.909 Migraine, unspecified, not intractable, without status migrainosus; Z90.49 Acquired absence of other specified parts of digestive tract; Z98.890 Other specified postprocedural states; Z79.899 Other long term (current) drug therapy; Z88.8 Allergy status to other drugs, medicaments and biological substances

== ENCOUNTER → 2018-03-23 | Outpatient (CLI) | payer OTHER ==
[~2018-03-23] MED LIST changes: +BROMFED DM COU118 M2 PO
== END | disposition home or self-care (01) ==
LOC: MAMMO 09:00
DX: N63.20 Unspecified lump in the left breast, unspecified quadrant (principal)

== ENCOUNTER 2018-03-29 21:33 | Emergency (ER) | payer OTHER ==
[~2018-03-29] VITALS: Ht 160 cm; Wt 68.0 kg
[2018-03-29] MEDS ORDERED: CLONAZEPAM0.5 M2 PO (21:36)
[2018-03-29] MEDS ORDERED: Percocet 325 MG1 TAB PO (21:36)
[2018-03-29] MEDS ORDERED: LAMOTRIGINE25 M1 PO (21:37)
[2018-03-29 22:01] LABS: BILIRUBIN NEGATIVE (NEGATIVE); BLOOD NEGATIVE (NEGATIVE); CLARITY CLEAR (CLEAR); COLOR YELLOW (YELLOW); GLUCOSE NEGATIVE (NEGATIVE); KETONE NEGATIVE (NEGATIVE); LEUKO ESTERASE NEGATIVE (NEGATIVE); NITRITE NEGATIVE (NEGATIVE); PH 6.5 (5.0-9.0); SPECIFIC GRAVITY <= 1.005 (1.005-1.030); UROBILINOGEN 0.2 E.U./dl (0.2-1.0)
[2018-03-29 22:09] LABS: RBC 0-2 rbc/hpf (0-2)
[2018-03-29 22:10] LABS: BACTERIA 2+
[2018-04-03 14:04] LABS: GONOCOCCUS BY NAA Negative (Negative)
== END 2018-03-29 22:44 | disposition home or self-care (01) ==
LOC: ED 21:33
PROVIDERS: Student in an Organized Health Care Education/Training Program
DX: Z11.3 Encounter for screening for infections with a predominantly sexual mode of transmission (principal); Z32.02 Encounter for pregnancy test, result negative; F17.200 Nicotine dependence, unspecified, uncomplicated; Z88.6 Allergy status to analgesic agent; Z79.2 Long term (current) use of antibiotics; Z79.899 Other long term (current) drug therapy; Z90.49 Acquired absence of other specified parts of digestive tract

== ENCOUNTER 2018-04-12 23:39 | Emergency (ER) | payer OTHER ==
[~2018-04-12] VITALS: Ht 160 cm; Wt 63.5 kg
[~2018-04-12 23:39] MED LIST changes: +CLONAZEPAM0.5 M2 PO; +LAMOTRIGINE25 M1 PO; +Percocet 325 MG1 TAB PO
[2018-04-13] MEDS ORDERED: CEFADROXIL500 M1 PO (01:28)
== END 2018-04-13 01:52 | disposition home or self-care (01) ==
LOC: ED 23:39
DX: L72.3 Sebaceous cyst (principal); L08.89 Other specified local infections of the skin and subcutaneous tissue; M54.5 Low back pain; M25.531 Pain in right wrist; M79.672 Pain in left foot; M25.571 Pain in right ankle and joints of right foot; M25.572 Pain in left ankle and joints of left foot; Z88.8 Allergy status to other drugs, medicaments and biological substances; Z79.899 Other long term (current) drug therapy

== ENCOUNTER → 2018-04-24 | Outpatient (CLI) | payer OTHER ==
[~2018-04-24] MED LIST changes: +'CLONIDINE0.1 MG PO; +OMEPRAZOLE40 MG PO
[2018-04-24 14:57] LABS: HEMATOCRIT 41.7 % (37.0-47.0); HEMOGLOBIN 13.3 g/dl (12.0-16.0); MEAN CELL VOLUME 93.9 fl (81.0-99.0); MEAN CORPUSCULAR HGB CONC 31.9 g/dl (33.0-37.0); MEAN PLATELET VOLUME 9.9 fl (9.6-12.3); RED BLOOD COUNT 4.44 10*6/uL (4.10-5.10); RED CELL DISTRI WIDTH 13.5 % (0-14.5)
[2018-04-24 15:14] LABS: ALBUMIN 4.3 gm/dl (3.1-4.5); BUN 11 mg/dl (7-24); CHLORIDE 106 mmol/L (98-107); CHOLESTEROL 202 mg/dL (<200); CREATININE 0.69 mg/dL (0.55-1.02); POTASSIUM 3.4 mmol/L (3.5-5.1); SGOT/AST 18 IU/L (3-35); SGPT/ALT 21 U/L (12-78); SODIUM 139 mmol/L (136-145); TOTAL PROTEIN 8.9 gm/dL (6.4-8.2); TRIGLYCERIDES 102 mg/dl (<150); VLDL CHOLESTEROL 20 mg/dL (6-40)
[2018-04-24 15:21] LABS: ALKALINE PHOSPHATASE 59 U/L (45-117); HDL CHOLESTEROL 80 mg/dl (40-60); LDL CHOLESTEROL 102 mg/dL (9-159)
[2018-04-25 06:11] LABS: FOLLICLE STIMULATING HORMONE 9.5 mIU/mL (.); LUTEINIZING HORMONE 004283 5.3 mIU/mL (.)
[2018-04-25 07:07] LABS: HEPATITIS B SURFACE AG Negative (Negative); HEPATITIS C VIRUS ANTIBODY 0.1 s/co (0.0-0.9)
[2018-04-25 15:08] LABS: EPSTEIN-BARR VCA IGM AB <36.0 U/mL (0.0-35.9)
[2018-04-26 00:06] LABS: TESTOSTERONE FREE, (DIRECT) 3.9 pg/mL (0.0-4.2)
[2018-04-27 01:08] LABS: ALTERNARIA ALTERNATA, IGE <0.10 kU/L (Class 0); AMERICAN ELM, IGE <0.10 kU/L (Class 0); ASPERGILLUS FUMIGATU, IGE <0.10 kU/L (Class 0); BERMUDA GRASS, IGE <0.10 kU/L (Class 0); BIRCH, COMMON SILVER IGE <0.10 kU/L (Class 0); CLADOSPORIUM HERBARU, IGE <0.10 kU/L (Class 0); CORN, IGE <0.10 kU/L (Class 0); D FARINAE MITE <0.10 kU/L (Class 0); D PTERONYSSINUS <0.10 kU/L (Class 0); DOG DANDER, IGE <0.10 kU/L (Class 0); IMMUNOGLOBULIN IgE 002170 20 IU/mL (0-100); MAPLE LEAF SYCAMORE, IGE <0.10 kU/L (Class 0); MAPLE/BOX ELDER, IGE <0.10 kU/L (Class 0); MILK (COW), IGE <0.10 kU/L (Class 0); MOUSE URINE IGE <0.10 kU/L (Class 0); PEANUT, IGE <0.10 kU/L (Class 0); PENICILLIUM CHRYSOGENUM, IGE <0.10 kU/L (Class 0); ROUGH PIGWEED, IGE <0.10 kU/L (Class 0); SHEEP SORREL (DOCK), IGE <0.10 kU/L (Class 0); SHORT RAGWEED, IGE <0.10 kU/L (Class 0); SOYBEAN, IGE <0.10 kU/L (Class 0); TIMOTHY, IGE <0.10 kU/L (Class 0); WALNUT TREE, IGE <0.10 kU/L (Class 0); WHEAT, IGE <0.10 kU/L (Class 0); WHITE ASH, IGE <0.10 kU/L (Class 0); WHITE MULBERRY, IGE <0.10 kU/L (Class 0); WHITE OAK, IGE <0.10 kU/L (Class 0)
== END | disposition home or self-care (01) ==
LOC: LAB 14:06
PROVIDERS: Family Medicine
DX: E78.00 Pure hypercholesterolemia, unspecified (principal); T78.40XA Allergy, unspecified, initial encounter; L03.90 Cellulitis, unspecified; R10.9 Unspecified abdominal pain; M25.50 Pain in unspecified joint; F39 Unspecified mood [affective] disorder; R53.83 Other fatigue; E55.9 Vitamin D deficiency, unspecified; R31.9 Hematuria, unspecified; X58.XXXA Exposure to other specified factors, initial encounter

== ENCOUNTER → 2018-05-11 | Outpatient (CLI) | payer OTHER ==
[~2018-05-11] MED LIST changes: +ZOFRAN4 MG PO
== END | disposition home or self-care (01) ==
LOC: LAB 16:34
PROVIDERS: Family Medicine
DX: F41.1 Generalized anxiety disorder (principal); R53.83 Other fatigue; M25.50 Pain in unspecified joint

== ENCOUNTER 2018-06-18 06:34 | Emergency (ER) | payer OTHER ==
[~2018-06-18] VITALS: Ht 160 cm; Wt 68.0 kg
[~2018-06-18 06:34] MED LIST changes: -'CLONIDINE0.1 MG PO; -OMEPRAZOLE40 MG PO; -ZOFRAN4 MG PO
[2018-06-18] MEDS ORDERED: 'CLONIDINE0.1 MG PO (06:40)
[2018-06-18] MEDS ORDERED: HYDROXYZINE PAM50 MG PO (06:40)
[2018-06-18] MEDS ORDERED: CLONAZEPAM0.5 M2 PO (06:41)
[2018-06-18] MEDS ORDERED: OMEPRAZOLE40 MG PO (06:42)
[2018-06-18 07:25] LABS: BASO % 0.3 % (0.0-1.0); EOS # 0.2 10*3/uL (0.0-0.4); EOS % 2.7 % (1.0-4.0); HEMATOCRIT 38.3 % (37.0-47.0); HEMOGLOBIN 12.6 g/dl (12.0-16.0); LYMPH # 1.2 10*3/uL (1.3-4.4); LYMPH % 18.6 % (27.0-41.0); MEAN CELL VOLUME 91.8 fl (81.0-99.0); MEAN CORPUSCULAR HGB 30.2 pg (27.0-31.0); MEAN CORPUSCULAR HGB CONC 32.9 g/dl (33.0-37.0); MEAN PLATELET VOLUME 9.8 fl (9.6-12.3); MONO # 0.3 10*3/uL (0.1-1.0); MONO % 4.4 % (3.0-9.0); NEUT # 4.7 10*3/uL (2.3-7.9); NEUT % 73.7 % (47.0-73.0); PLATELET COUNT AUTOMATED 309 10*3/uL (130-400); RED BLOOD COUNT 4.17 10*6/uL (4.10-5.10); RED CELL DISTRI WIDTH 13.1 % (0-14.5); WHITE BLOOD COUNT 6.4 10*3/uL (4.8-10.8)
[2018-06-18 07:44] LABS: BILIRUBIN NEGATIVE (NEGATIVE); BLOOD TRACE-INTACT (NEGATIVE); CLARITY CLEAR (CLEAR); COLOR YELLOW (YELLOW); GLUCOSE NEGATIVE (NEGATIVE); KETONE NEGATIVE (NEGATIVE); LEUKO ESTERASE TRACE (NEGATIVE); NITRITE NEGATIVE (NEGATIVE); SPECIFIC GRAVITY <= 1.005 (1.005-1.030); UROBILINOGEN 0.2 E.U./dl (0.2-1.0)
[2018-06-18 07:54] LABS: URINE AMPHETAMINES < 1000 (1000ng/ml); URINE BARBITURATES < 200 (200ng/ml); URINE BENZODIAZEPINES < 200 (200ng/ml); URINE CANNABINOIDS (THC) < 50 (50ng/ml); URINE COCAINE < 300 (300ng/ml); URINE METHADONE < 300 (300ng/ml); URINE OPIATES < 300 (300ng/ml)
[2018-06-18 07:58] LABS: BACTERIA TRACE
[2018-06-18 08:00] LABS: URINE PHENCYCLIDINE < 25 (25ng/ml)
[2018-06-18 08:44] LABS: ALBUMIN 4.1 gm/dl (3.1-4.5); ALKALINE PHOSPHATASE 51 U/L (45-117); BUN 7 mg/dl (7-24); CHLORIDE 108 mmol/L (98-107); CREATININE 0.63 mg/dL (0.55-1.02); LIPASE 89 U/L (73-393); POTASSIUM 3.6 mmol/L (3.5-5.1); SGOT/AST 18 IU/L (3-35); SGPT/ALT 16 U/L (12-78); SODIUM 140 mmol/L (136-145); TOTAL PROTEIN 8.3 gm/dL (6.4-8.2)
== END 2018-06-18 08:13 | disposition home or self-care (01) ==
LOC: ED 06:34
PROVIDERS: Emergency Medicine
DX: S50.312A Abrasion of left elbow, initial encounter (principal); R10.9 Unspecified abdominal pain; R19.7 Diarrhea, unspecified; F17.200 Nicotine dependence, unspecified, uncomplicated; Z88.6 Allergy status to analgesic agent; Z88.8 Allergy status to other drugs, medicaments and biological substances; Z79.899 Other long term (current) drug therapy; Z90.49 Acquired absence of other specified parts of digestive tract; W17.2XXA Fall into hole, initial encounter; Y93.89 Activity, other specified; Y92.89 Other specified places as the place of occurrence of the external cause; Y99.8 Other external cause status

== ENCOUNTER 2018-10-24 19:56 | Emergency (ER) | payer OTHER ==
[~2018-10-24] VITALS: Ht 160 cm; Wt 65.8 kg
[~2018-10-24 19:56] MED LIST changes: +'CLONIDINE0.1 MG PO; +OMEPRAZOLE40 MG PO
[2018-10-24 20:26] LABS: BILIRUBIN NEGATIVE (NEGATIVE); BLOOD 3+ (NEGATIVE); CLARITY CLEAR (CLEAR); COLOR YELLOW (YELLOW); GLUCOSE NEGATIVE (NEGATIVE); KETONE NEGATIVE (NEGATIVE); LEUKO ESTERASE 1+ (NEGATIVE); NITRITE NEGATIVE (NEGATIVE); PH 6.5 (5.0-9.0); SPECIFIC GRAVITY <= 1.005 (1.005-1.030); UROBILINOGEN 0.2 E.U./dl (0.2-1.0)
[2018-10-24 20:40] LABS: BACTERIA 2+; RBC 16-20 rbc/hpf (0-2)
[2018-10-24] MEDS ORDERED: MACROBID100 M1 PO (20:41)
[2018-10-24] MEDS ORDERED: ZOFRAN4 MG PO (20:41)
== END 2018-10-24 20:49 | disposition home or self-care (01) ==
LOC: ED 19:56
PROVIDERS: Physician Assistant
DX: N39.0 Urinary tract infection, site not specified (principal); R11.2 Nausea with vomiting, unspecified; R19.7 Diarrhea, unspecified; M54.5 Low back pain; Z87.440 Personal history of urinary (tract) infections; Z90.49 Acquired absence of other specified parts of digestive tract; Z79.899 Other long term (current) drug therapy; Z88.6 Allergy status to analgesic agent; Z88.8 Allergy status to other drugs, medicaments and biological substances

== ENCOUNTER → 2018-10-30 | Outpatient (CLI) | payer OTHER ==
[~2018-10-30] MED LIST changes: +ZOFRAN4 MG PO
[2018-10-30 10:44] LABS: HEMATOCRIT 39.9 % (37.0-47.0); HEMOGLOBIN 12.9 g/dl (12.0-16.0); MEAN CELL VOLUME 95.2 fl (81.0-99.0); MEAN CORPUSCULAR HGB 30.8 pg (27.0-31.0); MEAN CORPUSCULAR HGB CONC 32.3 g/dl (33.0-37.0); MEAN PLATELET VOLUME 9.8 fl (9.6-12.3); RED BLOOD COUNT 4.19 10*6/uL (4.10-5.10); RED CELL DISTRI WIDTH 13.2 % (0-14.5); WHITE BLOOD COUNT 5.6 10*3/uL (4.8-10.8)
[2018-10-30 11:16] LABS: ALBUMIN 3.9 gm/dl (3.1-4.5); ALKALINE PHOSPHATASE 46 U/L (45-117); BUN 12 mg/dl (7-24); CHLORIDE 105 mmol/L (98-107); CREATININE 0.75 mg/dL (0.55-1.02); POTASSIUM 3.9 mmol/L (3.5-5.1); SGOT/AST 17 IU/L (3-35); SGPT/ALT 16 U/L (12-78); SODIUM 140 mmol/L (136-145); TOTAL PROTEIN 7.8 gm/dL (6.4-8.2)
[2018-10-31 08:12] LABS: HEPATITIS C VIRUS ANTIBODY <0.1 s/co (0.0-0.9)
[2018-10-31 12:06] LABS: HEPATITIS B SURFACE AG Negative (Negative)
[2018-10-31 13:09] LABS: SJOGREN ANTI-SS-A <0.2 AI (0.0-0.9); SJOREN AB, ANTI-SS-B <0.2 AI (0.0-0.9)
[2018-10-31 16:08] LABS: ANTI-SMOOTH MUSCLE ANTIBODY 7 Units (0-19)
[2018-10-31 22:08] LABS: TESTOSTERONE FREE, (DIRECT) 1.9 pg/mL (0.0-4.2)
[2018-11-08 09:50] LABS: HLA-B27 ANTIGEN Negative (.)
== END | disposition home or self-care (01) ==
LOC: LAB 10:08
PROVIDERS: Family Medicine
DX: R61 Generalized hyperhidrosis (principal); R10.9 Unspecified abdominal pain; M79.7 Fibromyalgia; M25.50 Pain in unspecified joint

== ENCOUNTER 2018-12-16 20:39 | Emergency (ER) | payer OTHER ==
[~2018-12-16] VITALS: Ht 160 cm; Wt 56.7 kg
--- NOTE | ~2018-12-16 | EKG ---
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
--- NOTE | ~2018-12-16 | EKG ---
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
[2018-12-16] MEDS ORDERED: ZANTAC 150150 MG PO (20:50)
[2018-12-16 21:14] LABS: BASO % 0.3 % (0.0-1.0); EOS # 0.3 10*3/uL (0.0-0.4); EOS % 3.4 % (1.0-4.0); HEMATOCRIT 37.5 % (37.0-47.0); HEMOGLOBIN 12.1 g/dl (12.0-16.0); LYMPH # 2.3 10*3/uL (1.3-4.4); MEAN CORPUSCULAR HGB 30.3 pg (27.0-31.0); MEAN CORPUSCULAR HGB CONC 32.3 g/dl (33.0-37.0); MONO # 0.6 10*3/uL (0.1-1.0); MONO % 7.2 % (3.0-9.0); NEUT # 4.6 10*3/uL (2.3-7.9); PLATELET COUNT AUTOMATED 318 10*3/uL (130-400); RED BLOOD COUNT 3.99 10*6/uL (4.10-5.10); RED CELL DISTRI WIDTH 12.6 % (0-14.5); WHITE BLOOD COUNT 7.7 10*3/uL (4.8-10.8)
[2018-12-16 21:25] LABS: ACT PARTIAL THROMBO TIME 26.5 SECONDS (20.0-32.1); INTERNATIONAL NORM RATIO 0.9 (2.0-3.5)
[2018-12-16 21:31] LABS: ALBUMIN 4.1 gm/dl (3.1-4.5); ALKALINE PHOSPHATASE 44 U/L (45-117); BUN 13 mg/dl (7-24); CHLORIDE 107 mmol/L (98-107); CREATININE 0.69 mg/dL (0.55-1.02); POTASSIUM 3.5 mmol/L (3.5-5.1); SGOT/AST 16 IU/L (3-35); SGPT/ALT 15 U/L (12-78); SODIUM 140 mmol/L (136-145); TOTAL PROTEIN 7.9 gm/dL (6.4-8.2)
[2018-12-16 21:34] LABS: TROPONIN I < 0.015 ng/ml (<0.045)
== END 2018-12-16 23:53 | disposition home or self-care (01) ==
LOC: ED 20:39
PROVIDERS: Emergency Medicine Emergency Medical Services
DX: J45.909 Unspecified asthma, uncomplicated (principal); R07.89 Other chest pain; R68.84 Jaw pain; R11.10 Vomiting, unspecified; Z79.899 Other long term (current) drug therapy; Z88.6 Allergy status to analgesic agent; Z88.8 Allergy status to other drugs, medicaments and biological substances; Z87.891 Personal history of nicotine dependence

== ENCOUNTER → 2019-11-20 | Outpatient (CLI) | payer BC | END | disposition home or self-care (01) | LOC: US 11-15 11:30 | DX: M79.662 Pain in left lower leg (principal) ==

== ENCOUNTER 2020-02-25 19:34 | Emergency (ER) | payer SELFPAY ==
[~2020-02-25] VITALS: Ht 160 cm; Wt 58.5 kg
[2020-02-25 20:02] LABS: BASO % 0.3 % (0.0-1.0); EOS # 0.2 10*3/uL (0.0-0.4); EOS % 2.9 % (1.0-4.0); HEMATOCRIT 38.7 % (37.0-47.0); LYMPH % 33.8 % (27.0-41.0); MEAN CELL VOLUME 93.3 fl (81.0-99.0); MEAN CORPUSCULAR HGB 29.9 pg (27.0-31.0); MEAN PLATELET VOLUME 9.7 fl (9.6-12.3); MONO # 0.4 10*3/uL (0.1-1.0); MONO % 7.5 % (3.0-9.0); NEUT # 3.2 10*3/uL (2.3-7.9); NEUT % 55.3 % (47.0-73.0); PLATELET COUNT AUTOMATED 308 10*3/uL (130-400); RED BLOOD COUNT 4.15 10*6/uL (4.10-5.10); RED CELL DISTRI WIDTH 12.2 % (0-14.5); WHITE BLOOD COUNT 5.9 10*3/uL (4.8-10.8)
[2020-02-25 20:13] LABS: ACT PARTIAL THROMBO TIME 25.9 SECONDS (20.0-32.1)
[2020-02-25 20:19] LABS: ALBUMIN 3.8 gm/dl (3.1-4.5); ALKALINE PHOSPHATASE 31 U/L (45-117); BUN 12 mg/dl (7-24); CHLORIDE 107 mmol/L (98-107); CREATININE 0.76 mg/dL (0.55-1.02); POTASSIUM 3.5 mmol/L (3.5-5.1); SGOT/AST 15 IU/L (3-35); SGPT/ALT 15 U/L (12-78); SODIUM 140 mmol/L (136-145); TOTAL PROTEIN 7.6 gm/dL (6.4-8.2); TROPONIN I < 0.015 ng/ml (<0.045)
== END 2020-02-26 02:25 | disposition left against medical advice (07) ==
LOC: ED 19:34
PROVIDERS: Emergency Medicine
DX: U07.1 COVID-19 (principal); J45.909 Unspecified asthma, uncomplicated; Z88.1 Allergy status to other antibiotic agents; Z88.6 Allergy status to analgesic agent; Z88.8 Allergy status to other drugs, medicaments and biological substances; Z79.899 Other long term (current) drug therapy

== ENCOUNTER → 2021-10-16 | Outpatient (CLI) | payer BC | END | disposition home or self-care (01) | LOC: CT 11:00 | PROVIDERS: ATTEND Surgery | DX: R07.81 Pleurodynia (principal) ==